=== PATIENT | female | born 1945 | race Caucasian/White ===

== ENCOUNTER 2021-09-17 11:38 | Emergency (ER) | payer MEDICARE, SELFPAY ==
[2021-09-17 11:49] VITALS: BP 132/62; PULSE 72; RESP 16; TEMP 37.3; O2SAT 100
--- NOTE | 2021-09-17 11:59 | ED.GENADULT ---
HPI - General Adult General Chief complaint: Wound/Laceration Stated complaint: Swollen jaw History of Present Illness HPI narrative: This is a 75-year-old female presents to the urgent care complaining of jaw swelling to the right side. Patient denies having any tooth pain but states that she she has had the jaw pain since yesterday and her face has continued to swell last night was the worst she woke up this morning after she applies ice on it seems to have decreased in her face does not feel as tight Related Data Home Medications Medication Instructions Recorded Confirmed aspirin 81 mg PO DAILY 09/17/21 09/17/21 atorvastatin 40 mg PO DAILY 09/17/21 09/17/21 clopidogrel 75 mg PO DAILY 09/17/21 09/17/21 furosemide 20 mg PO DAILY 09/17/21 09/17/21 insulin NPH isoph U-100 human 15 unit SUBCUT TID 09/17/21 09/17/21 [Novolin N Flexpen] metoprolol succinate 25 mg PO DAILY 09/17/21 09/17/21 spironolactone 25 mg PO DAILY 09/17/21 09/17/21 Allergies Allergy/AdvReac Type Severity Reaction Status Date / Time cephalexin [From Keflex] Allergy Unknown Verified 09/17/21 12:05 Penicillins Allergy Unknown Verified 09/17/21 12:05 Review of Systems Review of Systems: Right-sided facial swelling All systems reviewed & are unremarkable except as noted in HPI and below PMFSH Comments At time as signature, I have reviewed and agree with nursing past medical, social, surgical and family history. Please see nursing chart for further information. There is no relevant family history pertinent to the presenting complaint. Exam Narrative: GENERAL:Well-appearing, well-nourished, and in no acute distress. HEAD:Normocephalic EYES: PERRLA ENT: Nares clear, no rhinorrhea or epistaxis. Mucous membranes moist. right sided facial swelling with erythema inside of mouth able to palpate gum line that is painful CHEST: No respiratory distress. HEART: Regular rate and rhythm. Normal peripheral pulses. ABDOMEN: Soft, nontender, normal active bowel sounds. EXTREMITIES: Normal range of motion. No edema. SKIN: Warm, dry, no rash. NEURO: No focal deficits. Alert and oriented x3. Course Vital Signs Vital signs: Vital Signs Temperature 99.1 F 09/17/21 11:49 Pulse Rate 72 12/22/21 11:49 Respiratory Rate 16 09/17/21 11:49 Blood Pressure 132/62 09/17/21 11:49 Pulse Oximetry 100 09/17/21 11:49 Temperature 99.1 F 09/17/21 11:49 Pulse Rate 72 09/17/21 11:49 Respiratory Rate 16 09/17/21 11:49 Blood Pressure 132/62 09/17/21 11:49 Pulse Oximetry 100 09/17/21 11:49 Medical Decision Making Vital Signs Vital Signs: Vital Signs Temperature 99.1 F 09/17/21 11:49 Pulse Rate 72 09/17/21 11:49 Respiratory Rate 16 09/17/21 11:49 Blood Pressure 132/62 09/17/21 11:49 Pulse Oximetry 100 09/17/21 11:49 Temperature 99.1 F 09/17/21 11:49 Pulse Rate 72 09/17/21 11:49 Respiratory Rate 16 09/17/21 11:49 Blood Pressure 132/62 09/17/21 11:49 Pulse Oximetry 100 09/17/21 11:49 Discharge Plan Discharge Clinical Impression: Cellulitis and abscess of face Patient Disposition: Home, Self-Care Condition: Stable Instructions: Antibiotic Form, Cellulitis (ED), Abscess (ED) Additional Instructions: use skin creams/lotion, such as those containing calamine or pramoxine to reduce itchiness Avoid scratching when possible to prevent worsening of the condition and disruption of the skin that could lead to bacterial infection To relieve itching, place a cool washcloth or some ice over the area that itches, rather than scratching Return to the office or seek ER visit if condition is not improving or worsens with fever, swelling, difficulty breathing or swallowing. Patient Language: [place]uran Prescriptions: New methylprednisolone [Medrol (Chan)] 4 mg tablets,dose pack See Rx Instructions .ROUTE .COMPLEX Qty: 21 RF: 0 clindamycin HCl 300 mg capsule 300 mg PO BID 7 Days Qty:
== END 2021-09-17 12:15 | disposition home or self-care (01) ==
PROVIDERS: Emergency Provider Nurse Practitioner Family
DX: L03.211 Cellulitis of face (principal); L02.01 Cutaneous abscess of face; Z95.5 Presence of coronary angioplasty implant and graft; E78.00 Pure hypercholesterolemia, unspecified; I10 Essential (primary) hypertension; M19.90 Unspecified osteoarthritis, unspecified site; E03.9 Hypothyroidism, unspecified
CPT/HCPCS: 99213; G0463

== ENCOUNTER 2024-03-04 16:21 | Emergency (ER) | payer MEDICARE, SELFPAY ==
[2024-03-04 16:30] VITALS: BP 125/66; PULSE 97; RESP 20; TEMP 36.7; O2SAT 98
--- NOTE | 2024-03-04 17:00 | ED.GENADULT ---
HPI - General Adult General Chief complaint: Dental/Oral Stated complaint: Toothache Pulled/Bleeding Time Seen by Provider: 03/04/24 16:40 Source: patient, RN notes reviewed and old records reviewed Mode of arrival: ambulatory Limitations: no limitations History of Present Illness HPI narrative: 78-year-old female to [facility] for complaint gums bleeding post tooth extraction 2 days ago. Patient reports history Eliquis and aspirin use and states that she was not advised to temporarily discontinue medications prior to or following procedure. Patient endorses that today she had onset of increased bleeding. Patient reports that she had been talking more today than she had since the procedure. Patient denies pain , dizziness, nausea, cough, difficulty breathing. Bleeding controlled upon arrival. Patient respirations even and nonlabored. Patient able to control secretions. Patient in no acute distress. Related Data Home Medications Medication Instructions Recorded Confirmed aspirin 81 mg capsule 81 mg PO DAILY 09/17/21 03/04/24 metoprolol succinate 25 mg capsule 25 mg PO DAILY 09/17/21 03/04/24 sprinkle, ext. release 24 hr apixaban 5 mg tablet (Eliquis) mg 03/04/24 atorvastatin 20 mg tablet 20 mg PO DAILY 03/04/24 03/04/24 furosemide 40 mg tablet 40 mg PO DAILY 03/04/24 03/04/24 insulin NPH isoph U-100 human 100 5 unit subcut BID 03/04/24 03/04/24 unit/mL subcutaneous suspension (Novolin N NPH U-100 Insulin isophane) Allergies Allergy/AdvReac Type Severity Reaction Status Date / Time cephalexin [From Keflex] Allergy Unknown Verified 03/04/24 16:23 Penicillins Allergy Unknown Verified 03/04/24 16:23 Review of Systems Review of Systems: All systems reviewed & are unremarkable except as noted in HPI and below Constitutional: Constitutional: Reports no additional constitutional complaints Eyes: Eyes: Reports no additional eye complaints ENT: Reports as per HPI and Reports other (bleeding gums post dental extraction) Cardiovascular: Cardiovascular: Reports no additional cardiovascular complaints, Denies chest pain and Denies dyspnea Respiratory: Respiratory: Reports no additional respiratory complaints, Denies cough and Denies dyspnea Musculoskeletal: Musculoskeletal: Reports no additional musculoskeletal complaints Neurologic: Reports system reviewed and no additional complaints, except as documented Psychiatric: Psychiatric: Reports no additional psychiatric complaints PMFSH Comments At the time of my signature, I reviewed and agree with the nursing past medical, surgical, social, and family history. There is no relevant family history pertinent to the patient complaint. Exam Const: General: cooperative, healthy appearing, comfortable, no acute distress, alert and well nourished Nutritional Appearance: well nourished Orientation/consciousness: patient oriented x3 Limitations: no limitations HENMT: Head: normal to inspection Ears: external ears normal Face/Nose/Sinus: Normal external nose present, Normal nares present, normal facial exam, No erythema and No edema Face and sinus: normal facial exam, no erythema and no edema Mouth: Yes lip normal, Yes tongue normal, Yes oropharynx normal, Yes moist mucous membranes, No drooling and Yes Abnormal oral and palatal mucosa present other (sutures present and intact at tooth sites 29 and 31. Mild oozing present. ) Eyes: General: appearance normal, both eyes and all related structures Neck: Neck: normal visual inspection, full ROM and no meningeal signs Lymphatic: no lymphadenopathy noted and no lymphedema noted Chest: Chest palpation & inspection: normal inspection of the chest Resp: Effort & Inspection: normal respiratory effort and able to speak in complete sentences Auscultation: clear to auscultation bilaterally Cardio: Jugular venous distension: no JVD Rate: regular rate Rhythm: regular rhythm Back/Spine/Pelvis: Cervical Spine: cervica
== END 2024-03-04 17:08 | disposition home or self-care (01) ==
PROVIDERS: Emergency Provider Nurse Practitioner Family
DX: K91.840 Postprocedural hemorrhage of a digestive system organ or structure following a digestive system procedure (principal); I10 Essential (primary) hypertension; M19.90 Unspecified osteoarthritis, unspecified site; E03.9 Hypothyroidism, unspecified; Z95.5 Presence of coronary angioplasty implant and graft; Z79.01 Long term (current) use of anticoagulants; Z79.82 Long term (current) use of aspirin
CPT/HCPCS: 99211; G0463